=== PATIENT | female | born 1960 | race Hispanic/Latino ===

== ENCOUNTER 2018-01-20 12:41 | Emergency (ER) | payer SELFPAY ==
--- NOTE | 2018-01-20 13:43 | RAD ---
RIGHT ELBOW 4 VIEWS: HISTORY: Injury. Fall. Pain. COMPARISON: None. FINDINGS: No joint effusion. No fracture. No cortical irregularity. No periosteal reaction. IMPRESSION: Unremarkable 4 views right elbow. POS: [facility]
--- NOTE | 2018-01-20 13:44 | RAD ---
RIGHT KNEE 4 VIEWS: HISTORY: Fall. Injury. Pain. FINDINGS: There is a small suprapatellar effusion. No fracture. No cortical irregularity. No periosteal reac tion. Mild tricompartment degenerative change. IMPRESSION: 1. No fracture. 2. Small suprapatellar effusion, nonspecific. POS: [facility]
--- NOTE | 2018-01-20 14:03 | CT ---
NONCONTRAST HEAD CT: HISTORY: Patient fell and hit head on floor, at [facility]. COMPARISON: None. TECHNIQUE: A noncontrast head CT is performed from the skull base to the skull vertex. FINDINGS: No parenchymal hemorrhage. No extraaxial hematoma. NO midline shift. Basilar cisterns are patent. Cortical youngblood-white matter differentiation is preserved. Ventricles and sulci are patent and symmetric. Adequate aeration of the sinuses and mastoid air cells. Intact calvarium. IMPRESSION: No acute intracranial process. No intracranial posttraumatic sequelae. POS: [facility]
--- NOTE | 2018-01-20 14:52 | CT ---
CT CERVICAL SPINE WITHOUT CONTRAST: HISTORY: Fall. Hit head on floor. COMPARISON: None. TECHNIQUE: CT cervical spine is performed without contrast. Reformatted images are submitted for interpretation . FINDINGS: Visualized soft tissue neck structures are unremarkable. Mediastinum and lung apices are unremarkabl e. No significant central canal stenosis. There is mild stenosis at multiple levels on the basis of deg enerative change. Evaluation is limited by technique. Neural foramina are patent. No evidence of craniocervical dissociation. Lateral masses of C1 and C2 articulate appropriately. O dontoid process is intact. Adequate articulation of the facets. Slight reversal of cervical lordosis. Vertebral body height is maintained. No fracture. Mild osteo phyte formation at C4-C5, C5-C6, and C6-C7. IMPRESSION: No significant interval spine fracture. POS: [facility]
== END 2018-01-20 14:02 | disposition home or self-care (01) ==
LOC: ERS 12:41
DX: S00.83XA Contusion of other part of head, initial encounter (principal); S50.01XA Contusion of right elbow, initial encounter; S80.01XA Contusion of right knee, initial encounter; W01.0XXA Fall on same level from slipping, tripping and stumbling without subsequent striking against object, initial encounter
CPT/HCPCS: 70450; 72125